=== PATIENT | female | born 1955 | race Caucasian/White ===

== ENCOUNTER 2017-12-13 17:08 | Emergency (ER) | payer MEDICARE ==
[~2017-12-13] VITALS: Ht 157.5 cm; Wt 77.1 kg
[~2017-12-13 17:08] MED LIST: ASPI1TAB71 PO; CYCL10TA2 PO; DOCU-109 PO; DOCU100C28 PO; LISI1TAB3 PO; LISI2.5T PO; METH5TAB2 PO; NORT10CA PO; OXYC-327 PO; Oxycodone Hcl/Acetaminophen PO; TRAM50TA PO
[2017-12-13] MEDS ORDERED: traMADol 50 MG TABLET PO ONE (17:30)
--- NOTE | 2017-12-13 17:35 | PHYS DOC ---
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 Patient states she took 2 Tylenol at the time that it happened. Patient states she has sharp pain that radiates from her inner wrist up to almost her elbow. Patient rates her pain a 6 out of 10. Patients can wiggle her fingers but cannot move her wrist. There is some swelling to the wrist. Patient states that she takes Tylenol, Nexium, lisinopril daily. She has no known drug allergies. Review of Systems Review of Systems Constitutional: Denies fever or chills [] Eyes: Denies change in visual acuity, redness, or eye pain [] HENT: Denies nasal congestion or sore throat [] Respiratory: Denies cough or shortness of breath [] Cardiovascular: No additional information not addressed in HPI [] GI: Denies abdominal pain, nausea, vomiting, bloody stools or diarrhea [] : Denies dysuria or hematuria [] Musculoskeletal: Denies back pain. Left wrist joint pain [] Integument: Denies rash or skin lesions [] Neurologic: Denies headache, focal weakness or sensory changes [] Endocrine: Denies polyuria or polydipsia [] All other systems were reviewed and found to be within normal limits, except as documented in this note. Current Medications Current Medications Current Medications Medications (Trade) Dose Ordered Sig/[facility] Start Time Stop Time Status Last Admin Dose Admin Tramadol HCl (Ultram) 50 mg 1X ONCE 12/13/17 17:30 12/13/17 17:31 DC 12/13/17 17:39 50 MG Allergies Allergies Allergies Uncoded Allergies Type Severity Reaction Last Updated Verified STRATASORB ADHESIVE DRESSING Adverse Reaction Intermediate Swelling 03/22/15 Physical Exam Physical Exam Constitutional: Well developed, well nourished, no acute distress, non-toxic appearance. [] HENT: Normocephalic, atraumatic, bilateral external ears normal, oropharynx moist, no oral exudates, nose normal. [] Eyes: PERRLA, EOMI, conjunctiva normal, no discharge. [] Neck: Normal range of motion, no tenderness, supple, no stridor. [] Cardiovascular:Heart rate regular rhythm, no murmur [] Lungs & Thorax: Bilateral breath sounds clear to auscultation [] Abdomen: Bowel sounds normal, soft, no tenderness, no masses, no pulsatile masses. [] Skin: Warm, dry, no erythema, no rash. [] Back: No tenderness, no CVA tenderness. [] Extremities: Left wrist tenderness, no cyanosis, no clubbing, ROM not intact in left wrist, Left wrist edema 1-2+. [] Neurologic: Alert and oriented X 3, normal motor function, normal sensory function, no focal deficits noted. [] Psychologic: Affect normal, judgement normal, mood normal. [] Current Patient Data Vital Signs Vital Signs Date Time Temp Pulse Resp B/P (MAP) Pulse Ox O2 Delivery O2 Flow Rate FiO2 12/13/17 17:39 Room Air 12/13/17 17:24 98.2 74 16 154/92 (112) 98 98.2 EKG EKG [] Radiology/Procedures Radiology/Procedures Left wrist, Left forearm Impressions: [facility] [address] [place], [place] [id number] IMAGING REPORT Signed PATIENT: CHICHO GOODEN ACCOUNT: [id number] : 1955 LOCATION: ER AGE: 62 SEX: F EXAM STATUS: REG ER ORD. PHYSICIAN: CHECO BAUMAN APRN REASON: fall, injury PROCEDURE: WRIST 3V LEFT Left wrist x-rays 3 views HISTORY: Fall left arm pain. FINDINGS: Mild angled acute traumatic fracture ulna styloid. Acute traumatic transverse oriented fracture of the distal radius metaphysis with mild buckling of the cortex circumferentially. No fracture or dislocation of the carpal bones or base of the metacarpals. IMPRESSION: Acute traumatic fractures of the distal radius metaphysis and ulna styloid as described above. Left forearm AP lateral x-rays 2 views HISTORY: Fall, left arm pain. FINDINGS: Small chronic appearing linear calcification anterior of the distal humerus metaphysis with no defect to suggest a fracture. Distal radius metaphysis mild buckled fracture. Ulna styloid fracture. Remainder of the radius and ulna are intact. No dislocation. IMPRESSION: Acute traumatic fractures of the ulna styloid and distal radius metaphysis. 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 Patient states she took 2 Tylenol at the time that it happened. Patient states she has sharp pain that radiates from her inner wrist up to almost her elbow. Patient rates her pain a 6 out of 10. Patients can wiggle her fingers but cannot move her wrist. There is some swelling to the wrist. Patient states that she takes Tylenol, Nexium, lisinopril daily. She has no known drug allergies. Has no deformity noted. Cap refill less than 3 seconds. She is alert and oriented. Patient states only her left wrist is hurting her at this time. Patient denies hitting her head or loc. Patient is ambulatory and walks with a steady gait. Skin is pink, warm and dry. Left wrist and forearm xray shows Acute traumatic fractures of the ulna styloid and distal radius metaphysis. Patient getting a sugar tong splint applied to the left arm. Patient is to follow up within 5 days with orthopedics and she is told to call Friday. Gave her [place] for pain and told her not to take her Tylenol on top of that she can take ibuprofen. Patient is given strict return instructions if arm starts getting tingly now more fingers are turning purple or swelling that she needs to return to the ED. [] Dragon Disclaimer Dragon Disclaimer This electronic medical record was generated, in whole or in part, using a voice recognition dictation system. Departure Departure Impression: Primary Impression: Radial fracture Disposition: 01 HOME, SELF-CARE Condition: STABLE Referrals: DOMINICK MATTHEWS MD (PCP) JORGE LUIS,TAYLOR J MD Patient Instructions: Radial Fracture Additional Instructions: Follow-up with orthopedic in 5 days and call them on Friday for an appointment. Patient is given strict return instructions if arm starts getting tingly now more fingers are turning purple or swelling that she needs to return to the ED. Scripts Hydrocodone/Apap 5-325 (NORCO 5-325 TABLET) 1 Each Tablet 1 TAB PO PRN Q6HRS PRN for PAIN, #8 TAB 0 Refills Prov: CHECO BAUMAN APRN 12/13/17 Problem Qualifiers Primary Impression: Radial fracture Encounter type: initial encounter Radius location: styloid process Fracture type: closed Fracture alignment: nondisplaced Laterality: left Qualified Codes: S52.515A - Nondisplaced fracture of left radial styloid process, initial encounter for closed fracture CHECO BAUMAN APRN Dec 13, 2017 17:35
--- NOTE | 2017-12-13 18:00 | RAD ---
Left wrist x-rays 3 views HISTORY: Fall left arm pain. FINDINGS: Mild angled acute traumatic fracture ulna styloid. Acute traumatic transverse oriented fracture of the distal radius metaphysis with mild buckling of the cortex circumferentially. No fracture or dislocation of the carpal bones or base of the metacarpals. IMPRESSION: Acute traumatic fractures of the distal radius metaphysis and ulna styloid as described above. Left forearm AP lateral x-rays 2 views HISTORY: Fall, left arm pain. FINDINGS: Small chronic appearing linear calcification anterior of the distal humerus metaphysis with no defect to suggest a fracture. Distal radius metaphysis mild buckled fracture. Ulna styloid fracture. Remainder of the radius and ulna are intact. No dislocation. IMPRESSION: Acute traumatic fractures of the ulna styloid and distal radius metaphysis. Electronically signed by: Abdirahman Ontiveros MD (12/13/2017 5:57 PM) [facility]
[2017-12-13] MEDS ORDERED: HYDR-971 PO (18:29)
[2017-12-13 18:45] VITALS: BP 144/88
== END 2017-12-13 18:51 | disposition home or self-care (01) ==
LOC: ER 17:08
DX: S52.515A Nondisplaced fracture of left radial styloid process, initial encounter for closed fracture (principal); I10 Essential (primary) hypertension; G89.29 Other chronic pain; Z88.8 Allergy status to other drugs, medicaments and biological substances; W01.0XXA Fall on same level from slipping, tripping and stumbling without subsequent striking against object, initial encounter; Y93.89 Activity, other specified; Y92.89 Other specified places as the place of occurrence of the external cause; Y99.8 Other external cause status
CPT/HCPCS: 29125; 73090; 73110; 99284-25